=== PATIENT | male | born 1960 | race Caucasian/White ===

== ENCOUNTER 2019-07-28 08:17 | Outpatient (CLI) | payer BC | END 2019-07-28 21:02 | disposition home or self-care (01) | LOC: SUS 08:17 | PROVIDERS: ATTEND Family Medicine | DX: I71.4 Abdominal aortic aneurysm, without rupture (principal) | CPT/HCPCS: 76700-TC ==

== ENCOUNTER 2019-08-15 08:15 | Outpatient (CLI) | payer BC ==
[2019-08-15] MEDS ORDERED: IOHEXOL 100 ML IV ONE (08:44)
== END 2019-08-15 22:01 | disposition home or self-care (01) ==
LOC: SCT 08:15
PROVIDERS: ATTEND Family Medicine
DX: I70.0 Atherosclerosis of aorta (principal); N40.0 Benign prostatic hyperplasia without lower urinary tract symptoms; K59.00 Constipation, unspecified
CPT/HCPCS: 74178; Q9967